=== PATIENT | female | born 1975 | race Caucasian/White ===

== ENCOUNTER → 2019-01-16 10:22 | Outpatient (CLI) | payer MEDICARE ==
[2016-12-04 21:45] VITALS: BMI 21.2
[~2019-01-16 10:22] MED LIST: BAYER CHEWABLE81 MG PO; CALCIUM 600+D T1 TA1 PO; CARDIZEM CD240 MG PO; CARDIZEM120 MG PO; FLAGYL500 MG PO; GLUCOPHAGE500 MG PO; ISOSORBIDE MONO30 M1 PO; NITROSTAT0.4 MG SL; NOVOLIN 70/30 110 ML SC; NOVOLOG100 UNIT/1 SC; PLAVIX75 MG PO; PRAVACHOL40 MG PO; PRINIVIL20 MG PO; TOPROL XL25 MG PO; VITAMIN C500 M1 PO; VITAMIN D250000 UNIT PO; ZITHROMAX250 MG PO; ZOCOR20 MG PO
== END | disposition home or self-care (01) ==
LOC: D.CT 10:22
PROVIDERS: ATTEND Internal Medicine Cardiovascular Disease
DX: I73.9 Peripheral vascular disease, unspecified (principal)

== ENCOUNTER 2019-01-27 11:27 | Outpatient (CLI) | payer MEDICARE ==
[~2019-01-27] VITALS: Ht 149.9 cm; Wt 47.7 kg
--- NOTE | ~2019-01-27 | HEMODYNAMI ---
PATIENT:ELISA HOOKS MEDICAL RECORD: [id number] : 77 LOCATION:DROBIN ADMISSION DATE: 01/27/19 Generatedon:01/27/201914:46 Patient name: ELISA HOOKS Patient #: [id number] SSN: : 1975 Date of study: 01/27/2019 Page: Of Hemodynamic Procedure Report Patient Data Patient Demographics Procedure consent was obtained First Name: ELISA Gender: Female Last Name: NEVA : 1975 [facility] Initial: DUSTY Age: 43 year(s) Patient #: [id number] Race: Additional ID: [id number] Contact details [address]: [address] [place] [address] State: [place] City: [place] Zip code: [address] Past Medical History Allergies Allergen Reaction Date Comments Reported Other allergy 01/27/2019 ATIVAN, GEMFIBROZIL, LABETALOL, Admission Admission Data Admission Date: 01/27/2019 Admission Time: 11:27 Height (in.): 59 BSA: 1.41 (m2) Height (cm.): 149.86 BMI: 21.37 (kg/m2) Weight (lbs.): 105.82 Weight (kg.): 48 Lab Results Lab Result Date: 01/27/2019 Lab Result Time: 0:00 Biochemistry Name Units Result Min Max BUN mg/dl 10 --(-*--)-- 7 18 Creatinine mg/dl 0.8 --(-*--)-- 0.6 1.3 eGFR ml/min 82.53197 -*(----)-- 90 120 NONAFRICAN CBC Name Units Result Min Max Hematocrit % 43.3 --(*---)-- 42 54 Hemoglobin g/dl 15.3 --(-*--)-- 13.5 17.5 Procedure Procedure Types Cath Procedure Diagnostic Procedure Sedation Charges Moderate Sedation up to 15 minutes Peripheral Cath Diagnostic Procedure Print Shop Chief Clerk Peripheral Procedures AFRO (Diagnostic) Procedure Description Procedure Date Procedure Date: 01/27/2019 Procedure Start Time: 14:16 Procedure End Time: 14:43 Procedure Staff Name Function Stuart Martin MD Performing Physician Bebe Laurent RT Scrub Andrew Roberts RN Nurse Citlalli Bautista RT Monitor Procedure Data Cath Procedure Fluoroscopy Diagnostic fluoroscopy Total fluoroscopy Time: 4.5 time: 4.5 min min Diagnostic fluoroscopy Total fluoroscopy dose: 95 dose: 95 mGy mGy Contrast Material Contrast Material Type Amount (ml) Isovue 300 66 Entry Location Entry Primary Successful Side Size Upsize Upsize Entry Closure Succes sful Closure Location (Fr) 1 (Fr) 2 (Fr) Remarks Device Remarks Femoral Left 5 Fr Exoseal artery Estimated blood loss: 10 ml Diagnostic catheters Device Type Used For End Catheter Placement DIAGNOSTIC 3DRC 5Fr Procedure catheter ([id number]) DIAGNOSTIC UF 5Fr Abdominal catheter ([id number]) aortogram with runoff Procedure Complications No complications Procedure Medications Medication Administration Route Dosage 0.9% NaCl I.V. 100 ml/hr Oxygen etCO2 Nasal cannula 2 l/min Heparin Flush Bag added to field 2 bags (1000units/500ml NS) Lidocaine 2% added to field 20 Versed I.V. 2 mg Fentanyl I.V. 100 mcg Versed I.V. 1 mg Versed I.V. 1 mg Hemodynamics Rest BSA: 1.41 (m2) HGB: 15.3 (g/dl) O2 Consumption: Estimated: 141.31 (ml/min) O2 Co nsumption indexed: Estimated:100.22 (ml/min/m) Heart Rate: 68 (bpm) Snapshots Pre Cath Intra NCS Post Cath Vital Signs Time Heart Resp SPO2 etCO2 NIBP (mmHg) Rhythm Pain Sedation Rate (ipm) (%) (mmHg) Status Level (bpm) 14:01:25 69 18 93 21.4 133/72(108) NSR 0 (11) 10(A) , No pain 14:05:41 65 17 90 25.1 121/68(97) NSR 0 (11) 10(A) , No pain 14:09:53 62 22 90 19.9 106/64(77) NSR 0 (11) 10(A) , No pain 14:14:01 61 21 90 19.9 107/58(79) NSR 0 (11) 10(A) , No pain 14:18:09 64 39 90 26.6 115/65(96) NSR 0 (11) 10(A) , No pain 14:22:21 62 20 91 19.9 106/60(81) NSR 0 (11) 10(A) , No pain 14:26:27 62 21 92 25.1 107/67(85) NSR 0 (11) 10(A) , No pain 14:30:34 66 20 91 23.7 125/66(106) NSR 0 (11) 9(A) , No pain 14:34:46 67 24 91 25.1 132/69(85) NSR 0 (11) 9(A) , No pain 14:39:02 69 27 92 23.7 123/64(83) NSR 0 (11) 10(A) , No pain 14:43:14 65 19 93 23.7 130/69(102) NSR 0 (11) 10(A) , No pain Medications Time Medication Route Dose Verified Delivered Reason Notes Eff ectiveness by by 14:01:42 0.9% NaCl I.V. 100 Andrew Andrew Per ml/hr Armando Roberts physician RN RN 14:01:52 Oxygen etCO2 2 Andrew Andrew for low 02 Nasal l/min Lorigan Lorigan sats cannula RN RN 14:02:04 Heparin Flush added 2 Andrew Andrew used for Bag to bags Lorigan Armando procedure (1000units/500ml field RN RN NS) 14:02:17 Lidocaine 2% added 20ml Andrew Andrew for local to vial Lorigan Lorigan anesthetic field RN RN 14:12:11 Versed I.V. 2 mg Andrew Andrew for Lorigan Lorigan sedation RN RN 14:12:42 Fentanyl I.V. 100 Andrew Andrew for mcg Lorigan Lorigan sedation RN RN 14:17:41 Versed I.V. 1 mg Andrew Andrew for Lorigan Lorigan sedation RN RN 14:22:23 Versed I.V. 1 mg Andrew Andrew for Lorigan Lorigan sedation RN news reel cameraman Log Time Note 13:35:04 Informed consent obtained and on chart 13:35:40 Procedure Status Elective Heart Cath (OP). 13:35:42 Time tracking: Regular hours (M-F 7:00 - 5:00) 13:38:28 H&P Date Dictated: 01/23/2019 Within 30 days and on chart., H&P Addendum completed by physician on day of procedure. (MUST COMPLETE FOR ALL OUTPATIENTS). 13:39:50 Patient allergic to Other allergyATIVAN, GEMFIBROZIL, LABETALOL, 13:40:21 Lab Result : BUN 10 mg/dl 13:40:21 Lab Result : Creatinine 0.8 mg/dl 13:40:21 Lab Result : eGFR NONAFRICAN 82.63510 ml/min 13:40:21 Lab Result : Hemoglobin 15.3 g/dl 13:40:21 Lab Result : Hematocrit 43.3 % 13:44:29 Patient Weight : 105.82 lbs 13:44:33 Patient Height : 59 inches 13:46:27 Andrew Roberts RN sent for patient. Start room use. 13:51:17 Patient received from Pre/Post Procedure Room to CCL 1 Alert and oriented. Tansferred to table in Supine position. 13:51:19 Warm blankets applied, and hugo hugger turned on for patient comfort. 13:51:19 Correct patient and procedure confirmed by team. 13:51:20 ECG and BP/O2 sat monitors applied to patient. 14:00:19 Vital chart was started 14:00:20 Baseline sample Acquired. 14:00:23 Rhythm: sinus rhythm 14:00:25 Full Disclosure recording started 14:00:26 Pre-procedure instructions explained to patient. 14:00:26 Pre-op teaching completed and patient verbalized understanding. 14:00:28 Family in patients room. 14:00:29 Patient NPO since Midnight. 14:00:31 Is the patient allergic to Iodine/contrast media? No. 14:00:41 Is patient on blood thinner?Yes 14:00:44 ACC The patient was administered the following blood thiners within the last 24 hours: ACCPlavix 14:00:46 Patient diabetic? Yes. 14:00:47 If diabetic: On Metformin? Yes 14:00:51 If on Metformin: Last Dose? 01/26/2019 14:00:53 Patient not . Patient has had hysterectomy. 14:00:56 Previous problem with sedation/anesthesia? No ? 14:00:59 Snore? Yes 14:01:00 Sleep apnea? No 14:01:01 Deviated septum? No 14:01:02 Opens mouth fully? Yes 14:01:03 Sticks out tongue? Yes 14:01:07 Airway obstruction? Yes COPD 14:01:09 Dentures? No ? 14:01:14 Pre procedure: right dorsailis pedis pulse Doppler 14:01:17 Pre procedure: left dorsailis pedis pulse Doppler 14:01:20 Patient pain scale 0/10 ?. 14:01:25 IV patent on arrival in right forearm with 0.9% NaCl at [facility]. 14:01:27 Lab results completed and on chart. 14:01:32 Bilateral groins area was prepped with chlora-prep and draped in sterile fashion 14:01:33 Alarms reviewed by R. N. 14:01:33 Sharps counted by scrub and verified by R.N. 14:01:41 Use device set CATH PACK 14:01:42 0.9% NaCl 100 ml/hr I.V. was administered by Andrew Roberts RN; Per physician; Verbal order read back and verified. 14:01:42 ACIST Syringe (07892) opened to sterile field. 14:01:43 ACIST Hand Control (68092) opened to sterile field. 14:01:43 ACIST Manifold (96939) opened to sterile field. 14:01:43 Medline Cath Pack ([id number]) opened to sterile field. 14:01:44 Bag Decanter (2002S) opened to sterile field. 14:01:44 EMERALD Guide Wire (808-989) opened to sterile field. 14:01:51 SHEATH 5FR Adrian ([id number]) opened to sterile field. 14:01:52 Oxygen 2 l/min etCO2 Nasal cannula was administered by Andrew Roberts RN; for low 02 sats; Verbal order read back and verified. 14:02:04 Heparin Flush Bag (1000units/500ml NS) 2 bags added to field was administered by Andrew Roberts RN; used for procedure; Verbal order read back and verified. 14:02:17 Lidocaine 2% 20ml vial added to field was administered by Andrew Roberts RN; for local anesthetic; Verbal order read back and verified. 14:09:35 --------ALL STOP TIME OUT------ 14:09:35 Final Timeout: patient, procedure, and site verified with staff and physician. All members of the team are in agreement. 14:09:48 Bilateral groins site verified by team. 14:09:51 Fire Safety Assessment: A--An alcohol-based skin anteseptic being used preoperatively., C--Open oxygen or nitrous oxide is being used., D--An ESU, laser, or fiber-optic light is being used. 14:09:53 Physical assessment completed. ASA score P 2 - A patient with mild systemic disease as per Stuart Martin MD. 14:09:57 2) 60-89 Mildly reduced kidney function, and other findings (as for stage 1) point to kidney disease. 14:10:00 Maximum allowable contrast dose (3.7 X eGFR X 0.75)230 ml. 14:10:03 Sedation plan: IV Moderate Sedation Medication:Versed, Fentanyl 14:11:45 Zero performed for pressure channel P1 14:12:11 Versed 2 mg I.V. was administered by Andrew Roberts RN; for sedation; Verbal order read back and verified. 14:12:42 Fentanyl 100 mcg I.V. was administered by Andrew Roberts RN; for sedation; Verbal order read back and verified. 14:15:33 Procedure started. 14:16:12 Local anesthetic to left femerol artery with Lidocaine 2% by Stuart Martin MD.INITIAL ACCESS ONLY 14:17:34 MICROPUNCTURE 4FR Cook ([id number]) opened to sterile field. 14:17:41 Versed 1 mg I.V. was administered by Andrew Roberts RN; for sedation; Verbal order read back and verified. 14:22:23 Versed 1 mg I.V. was administered by Andrew Roberts RN; for sedation; Verbal order read back and verified. 14:26:14 Access obtained with 4Fr micropunture. 14:27:00 A 5 Fr sheath was inserted into the Left Femoral artery 14:28:26 A DIAGNOSTIC 3DRC 5Fr catheter ([id number]) was advanced over the wire and used for Procedure. 14:30:32 WHOLEY 300cm 0.035 wire ([id number]) opened to sterile field. 14:31:19 3DRC USED TO CROSS LESION WITH WHOLEY WIRE 14:31:31 Catheter exchanged over wire. 14:31:44 A DIAGNOSTIC UF 5Fr catheter ([id number]) was advanced over the wire and used for Abdominal aortogram with runoff. 14:33:36 Abdominal angiogram w/ runoff was performed. 14:34:42 Left leg runoff performed. 14:34:44 Right leg runoff performed. 14:38:29 Sheath removed intact; hemostasis achieved with Exoseal to the Left Femoral artery. 14:39:01 EXOSEAL 5Fr (EX500) opened to sterile field. 14:39:38 Procedure ended.(Physican Out) 14:39:56 Fluoroscopy time 04.50 minutes. 14:40:04 Fluoroscopy dose: 95 mGy 14:40:04 Flurop Dose total: 95 14:40:21 Dose Area Product 9178 mGy/cm. 14:40:27 Contrast amount:Isovue 300 66ml. 14:40:35 Maximum allowable dose exceeded? No. 14:40:36 Sharps counted by scrub and verified by R.N. 14:40:39 Insertion/operative site no bleeding no hematoma. 14:40:45 Post right femoral artery:stable 14:40:49 Post Procedure Pulses reassessed and unchanged 14:40:55 Post-procedure physical assessment completed. ASA score P 3 - A patient with severe systemic disease as per Stuart Martin MD. 14:41:04 Estimated blood loss: 10 ml 14:41:05 Post procedure instruction explained to patient.Patient verbalizes understanding. 14:41:37 Procedure type changed to Cath procedure, Diagnostic procedure, Sedation Charges, Moderate Sedation up to 15 minutes, Peripheral Cath Diagnostic Procedure, Print Shop Chief Clerk Peripheral Procedures, AFRO (Diagnostic) 14:41:38 Procedure and supply charges have been captured, reviewed, submitted and are correct. 14:42:31 Procedure Complication : No complications 14:42:37 Vital chart was stopped 14:42:48 AFRO Findings: PVD: surgery consult 14:42:56 Operative report dictated upon procedure completion. 14:43:01 See physician's report for complete and final results. 14:43:10 Report given to Pre/Post Procedure Room. 14:43:14 Patient transfered to Pre/Post Procedure Room with Stretcher. 14:43:17 Procedure ended. 14:43:17 Full Disclosure recording stopped 14:43:20 End room use (Document Last) Device Usage Item Name Manufacture Quantity Catalog Hospital Part Current Minimal Lot# / Number Charge Number Stock Stock Serial# Code ACIST Syringe Acist 1 10275 290659 791180 [id number] 20 (31260) Medical Systems Inc ACIST Hand Acist 1 62903 773484 366377 669943 5 Control Medical (43709) Systems Inc ACIST Acist 1 16106 411874 931168 572781 5 Manifold Medical (56291) Systems Inc Medline Cath Medline 1 [id number] 826063 19801 053065 5 Pack ([id number]) Bag Decanter Microtek 1 2001S 048826 78773 980754 5 (2001S) Medical Inc. EMERALD Guide Cardinal 1 502-455 283615 647380 352828 5 Wire Health (502-455) SHEATH 5FR Terumo 1 [id number] 928759 372115 399840 5 Adrian (PPQ670) MICROPUNCTURE Cook Medical 1 [id number] 359801 583971 441301 5 4FR Cook ([id number]) DIAGNOSTIC Cardinal 1 [id number] 089457 636988 967854 9 3DRC 5Fr Health catheter (184010R) WHOLEY 300cm Medtronic 1 [id number] 295696 885182 014654 3 0.035 wire ([id number]) DIAGNOSTIC UF Cardinal 1 [id number] 265079 191040 548732 10 5Fr catheter Health (611448F5) EXOSEAL 5Fr Cardinal 1 EX500 259887 212686 186971 10 (EX500) Health Signature Audit Westley Stage Time Signature Unsigned Intra-Procedure 01/27/2019 Citlalli Bautista 2:44:20 PM RT(R) Intra-Procedure 01/27/2019 Andrew 2:44:55 PM Armando RN Intra-Procedure 01/27/2019 Stuart Martin MD 2:46:11 PM [place] [id number]
[~2019-01-27 11:27] MED LIST changes: -GLUCOPHAGE500 MG PO; -ISOSORBIDE MONO30 M1 PO; -NITROSTAT0.4 MG SL; -NOVOLIN 70/30 110 ML SC; -NOVOLOG100 UNIT/1 SC; -TOPROL XL25 MG PO; -VITAMIN C500 M1 PO; -ZOCOR20 MG PO
[2019-01-27] MEDS ORDERED: ZOCOR20 MG PO (12:23)
[2019-01-27] MEDS ORDERED: TOPROL XL25 MG PO (12:24)
[2019-01-27] MEDS ORDERED: ISOSORBIDE MONO30 M1 PO (12:24)
[2019-01-27] MEDS ORDERED: GLUCOPHAGE500 MG PO (12:25)
[2019-01-27] MEDS ORDERED: NOVOLOG100 UNIT/1 SC (12:25)
[2019-01-27] MEDS ORDERED: NITROSTAT0.4 MG SL (12:25)
[2019-01-27] MEDS ORDERED: VITAMIN C500 M1 PO (12:27)
[2019-01-27] MEDS ORDERED: NOVOLIN 70/30 110 ML SC (12:27)
[2019-01-27] MEDS ORDERED: PLAVIX75 MG PO (12:27)
[2019-01-27] MEDS ORDERED: CARDIZEM120 MG PO (12:28)
[2019-01-27 12:29] VITALS: BP 121/61; Ht 149.9 cm; Wt 47.7 kg
[2019-01-27 12:35] LABS: CALC OSMOLALITY 280 mosm/kg (275-300); CARBON DIOXIDE 21.8 mmol/L (21.0-32.0); CHLORIDE - SERUM 101 mmol/L (98-107); CREATININE - SERUM 0.8 mg/dL (0.6-1.3); POTASSIUM - SERUM 3.7 mmol/L (3.5-5.1); SODIUM 135 mmol/L (136-145); UREA NITROGEN 10 mg/dL (7-18); eGFR NON AFRICAN AMERICAN 83 mL/min (90-120)
[2019-01-27 12:36] LABS: GLUCOSE 308 mg/dL (74-106)
[2019-01-27 12:46] LABS: BASOPHILS 0.3 % (0-2); EOSINOPHILS 0.1 % (0-7); HEMATOCRIT 43.3 % (36.0-48.0); HEMOGLOBIN 15.3 g/dL (12-16); IMMATURE GRANULOCYTES 0.2 % (0-5); LYMPHOCYTES 32.7 % (15-50); MCH 33.6 pg (26.0-34.0); MCHC 35.3 g/dL (31.0-37.0); MCV 95.2 fL (80.0-100.0); MEAN PLATELET VOLUME 11.5 fL (7.4-10.4); NEUTROPHILS 62.7 % (40-80); PLATELET COUNT 195 10x3/uL (130-400); RBC 4.55 10x6/uL (4.00-5.40); RDW 13.4 % (11.5-14.5); WBC 10.3 10x3/uL (4.8-10.8)
--- NOTE | 2019-01-27 14:55 | NUR ---
PT ARRIVED BY STRETCHER. PLACED ON MONITORS. ASSESSMENT COMPLETED. VSS. FAMILY AT BEDSIDE. DR. ENG ROUNDED AND SPOKE WITH PT AND PT'S FAMILY. THEY VOICED UNDERSTANDING. CALL LIGHT WITHIN REACH.
--- NOTE | 2019-01-27 15:10 | NUR ---
PT RESTING COMFORTABLY. VSS. LEFT GROIN DRESSING C/D/I. NO S/S OF HEMATOMA NOTED. FAMILY AT BEDSIDE. CALL LIGHT WITHIN REACH.
--- NOTE | 2019-01-27 15:40 | NUR ---
LEFT GROIN DRESSING C/D/I. NO S/S OF HEMATOMA NOTED. CALL LIGHT WITHIN REACH. FAMILY AT BEDSIDE. VSS AT THIS TIME. RESTING COMFORTABLY.
--- NOTE | 2019-01-27 16:05 | NUR ---
RIGHT GROIN DRESSING C/D/I. NO S/S OF HEMATOMA NOTED. CALL LIGHT WITHIN REACH. HEAD OF BED INC TO 30 DEGREES. TOLERATED WELL. SET UP WITH SANDWICH TRAY AND DRINK. FAMILY AT BEDSIDE TO ASSIST.
--- NOTE | 2019-01-27 16:35 | NUR ---
PT SITTING UP EATING A SANDWICH. DENIES NAUSEA. VSS. LEFT GROIN DRESSING C/D/I. NO S/S OF HEMATOMA NOTED. CALL LIGHT WITHIN REACH. FAMILY AT BEDSIDE.
--- NOTE | 2019-01-27 17:08 | NUR ---
LEFT GROIN DRESSING C/D/I. NO S/S OF HEMATOMA NOTED. PIV D/C'D WITH CATH TIP INTACT. TOLERATED WELL. DISCUSSED DISCHARGE INSTRUCTIONS WITH PT AND PT'S FAMILY. THEY VOICED UNDERSTANDING. DR. WELCH'S NURSE WILL CALL PT REGARDING AN APPT. SPOKE WITH MONI HOFFMANN RN.
--- NOTE | 2019-01-27 17:10 | NUR ---
PT AMBULATED TO RESTROOM AND VOIDED WITHOUT DIFFICULTY.
--- NOTE | 2019-01-27 17:20 | NUR ---
LEFT GROIN DRESSING C/D/I. NO S/S OF HEMATOMA NOTED. PT TAKEN OUT TO VEHICLE BY WHEELCHAIR. NO S/S OF DISTRESS NOTED. ALL BELONGINGS AND PAPERWORK IN HAND.
== END 2019-01-27 17:20 | disposition home or self-care (01) ==
LOC: D.CATH 11:27
PROVIDERS: ATTEND Internal Medicine Cardiovascular Disease
DX: I70.213 Atherosclerosis of native arteries of extremities with intermittent claudication, bilateral legs (principal)

== ENCOUNTER → 2019-02-04 14:33 | Outpatient (CLI) | payer MEDICARE ==
[2019-01-27 12:29] VITALS: BMI 21.2
[~2019-02-04 14:33] MED LIST changes: +GLUCOPHAGE500 MG PO; +ISOSORBIDE MONO30 M1 PO; +NITROSTAT0.4 MG SL; +NOVOLIN 70/30 110 ML SC; +NOVOLOG100 UNIT/1 SC; +TOPROL XL25 MG PO; +VITAMIN C500 M1 PO; +ZOCOR20 MG PO
== END | disposition home or self-care (01) ==
LOC: D.US 14:33
PROVIDERS: ATTEND Internal Medicine Cardiovascular Disease
DX: I65.23 Occlusion and stenosis of bilateral carotid arteries (principal)

== ENCOUNTER 2019-02-19 05:00 | Day surgery (SDC) | payer MEDICARE ==
[2019-02-17 12:36] LABS: BASOPHILS 0.3 % (0-2); EOSINOPHILS 0 % (0-7); HEMATOCRIT 45.5 % (36.0-48.0); HEMOGLOBIN 15.8 g/dL (12-16); IMMATURE GRANULOCYTES 0.2 % (0-5); LYMPHOCYTES 30.5 % (15-50); MCH 33.3 pg (26.0-34.0); MCHC 34.7 g/dL (31.0-37.0); MCV 95.8 fL (80.0-100.0); MEAN PLATELET VOLUME 11.4 fL (7.4-10.4); MONOCYTES 3.5 % (2-11); NEUTROPHILS 65.5 % (40-80); PLATELET COUNT 196 10x3/uL (130-400); RBC 4.75 10x6/uL (4.00-5.40); RDW 13.4 % (11.5-14.5); WBC 11.2 10x3/uL (4.8-10.8)
[2019-02-17 12:54] LABS: APTT 29.3 SECONDS (22.8-39.4); INR 0.92 (0.85-1.17); PROTIME 11.8 SECONDS (11.6-15.0)
[2019-02-17 13:12] LABS: ALBUMIN 3.6 g/dL (3.4-5.0); ANION GAP 16.9 mmol/L (8-16); BILIRUBIN - TOTAL 0.2 mg/dL (0.2-1.3); CALCIUM 9.4 mg/dL (8.5-10.1); CREATININE - SERUM 0.9 mg/dL (0.6-1.3); POTASSIUM - SERUM 3.9 mmol/L (3.5-5.1); PROTEIN - SERUM 7.1 g/dL (6.4-8.2)
[2019-02-17 13:13] LABS: APPEARANCE CLEAR (CLEAR); COLOR YELLOW (YELLOW); GLUCOSE 1000 mg/dL (NEGATIVE); KETONE SMALL mg/dL (NEGATIVE); NITRITE NEGATIVE (NEGATIVE); PROTEIN NEGATIVE (NEGATIVE); SPECIFIC GRAVITY 1.015 (1.005-1.020); UROBILINOGEN NORMAL (NORMAL)
[2019-02-17 13:14] LABS: BILIRUBIN NEGATIVE (NEGATIVE)
[2019-02-19] VITALS (21 sets, daily range): BP systolic 121–155; BP diastolic 71–93; Ht 149.9 cm; Wt 50.1 kg
[~2019-02-19] VITALS: Ht 149.9 cm; Wt 50.1 kg
[2019-02-19] MEDS ORDERED: MELATONIN10 M1 PO (05:49)
[2019-02-19] MEDS ORDERED: TYLENOL PM1 TAB (05:50)
--- NOTE | 2019-02-19 10:20 | NUR ---
REC'D VIA BED FROM SURGERY, ALEXANDRA MASK AT 15L IN USE, VSS, DROWSEY, WAKES UP AND FOLLOWS COMMANDS, LEFT SC WITH PLASMYLITE AT 150 CC/HR, NO PRESSORS AT THIS TIME, RIGHT AND LEFT GROIN AREA WITH SOFT, NO REDNESS OR HEMATOMA, DRESSING CDI, PT MOVING ALL EXTREMETIES, POSITIVE DOPPLERED PEDAL PULSES B/L, ACCLAMATED TO CVICU, LCALL LIGHT IN REACH, ASSESSMENT COMPLETED PER FLOWSHEET, 1030 CXR COMPLETED 1040 MOTHER TO BEDSIDE, DR WELCH UPDATED STATUS 1050 O2 CHANGED TO NC AT 4L, SCD'S PLACED
--- NOTE | 2019-02-19 12:00 | NUR ---
MOTHER AT BEDSIDE. NO NEEDS AT THIS TIME. SR ON THE MONITOR.
--- NOTE | 2019-02-19 13:42 | NUR ---
EYES CLOSED, RESP EVEN AND UNLABORED. SR ON THE MONITOR. EASILY AROUSED BY VERBAL STIMULI. DENIES ANY PAIN OR NEEDS AT THIS TIME.
--- NOTE | 2019-02-19 19:00 | NUR ---
REPORT RECEIVED AT BEDSIDE, SHIFT ASSESSMENT COMPLETE PER FLOW SHEET, PT AAOx4 DENIES PAIN AT THIS TIME, ON ICU MONITORS, SINUS TACH @111bpm ON CM, OTHER VSS, BILAT GROIN INCISION SITES SOFT TO PALPATION, DRSG'S C/D/I, NO S/S OF BLEED, ALL PULSES PALPABLE, REPOSITIONED FOR COMFORT, CALL LIGHT IN REACH, BED ALARM ON, WILL CONTINUE TO MONITOR
--- NOTE | 2019-02-19 21:00 | NUR ---
MEDS GIVEN PER MAR/ORDERS, PT ABLE TO SWALLOW WITHOUT DIFFICULTY, NO S/S OF ACUTE DISTRESS, PT AWAKE AND ALERT, LARGE CUP ICE WATER GIVEN, VSS, PT REPOSIONED TO BEDSIDE TO DANGLE WITH MINIMAL ASSIST IN MOVEMENT, PT DENIES PAIN, CALL LIGHT IN REACH, NURSE AT BEDSIDE
--- NOTE | 2019-02-19 21:30 | NUR ---
REPOSITIONED PT IN BED WITH MINIMAL ASSIST FROM RN, VSS, HOB ELEVATED, CALL LIGHT IN REACH, TCDB COMPLETED, PT DENIES NEEDS AT THIS TIME, WILL CONTINUE TO MONITOR
--- NOTE | 2019-02-19 23:00 | NUR ---
REASSESSMENT COMPLETE PER FLOW SHEET, NO ACUTE CHANGES OR DISTRESS NOTED FROM PRIOR ASSESSMENT, PT RESTING WITH EYES CLOSED, WAKES WITH MINIMAL VERBAL STEMULI AAOx4, DENIES PAIN OR NEEDS AT TYHIS TIME, VSS, NSR ON CM, REPOSITIONS SELF FREQUENTLY FOR COMFORT, BILAT GROIN SITES SOFT TO PALPATION, DRSG'S C/D/I, ALL PULSES PALPABLE, CALL LIGHT IN REACH, WILL CONTINUE TO MONITOR
[2019-02-20] VITALS (22 sets, daily range): BP systolic 119–152; BP diastolic 72–88
--- NOTE | 2019-02-20 03:00 | NUR ---
REASSESSMENT COMPLETE PER FLOW SHEET, NO ACUTE CHANGES NOTED FROM PRIOR ASSESSMENT, PT DENIES PAIN OR NEEDS, VSS , ALL PULSES PALPABLE, REPOSITIONES SELF FREQUENTLY FOR COMFORT, CALL LIGHT IN REACH, WILL CONTINUE TO MONITOR
--- NOTE | 2019-02-20 06:00 | NUR ---
PT AMBULATED TO BEDSIDE CHAIR WITH RN AT SIDE, PT NEEDED MINIMAL ASSIST TO AMBULATE, NO WEAKNESS OR DIFFICULTY IN MOVEMENT, BILAT GROIN SITES C/D/I, SOFT TO PALPATION, SINUS TACH ON CM @ 110bpm, OTHER VSS, PT DENIES PAIN OR NEEDS AT THIS TIME, WILL CONTINUE TO MONITOR
[2019-02-20 06:39] LABS: HEMATOCRIT 36.9 % (36.0-48.0); HEMOGLOBIN 12.6 g/dL (12-16); MCH 32.3 pg (26.0-34.0); MCHC 34.1 g/dL (31.0-37.0); MCV 94.6 fL (80.0-100.0); RBC 3.9 10x6/uL (4.00-5.40); RDW 13.3 % (11.5-14.5); WBC 18.8 10x3/uL (4.8-10.8)
[2019-02-20 06:49] LABS: CALC OSMOLALITY 278 mosm/kg (275-300); CALCIUM 7.6 mg/dL (8.5-10.1); CARBON DIOXIDE 22.8 mmol/L (21.0-32.0); CHLORIDE - SERUM 106 mmol/L (98-107); CREATININE - SERUM 0.7 mg/dL (0.6-1.3); POTASSIUM - SERUM 3.7 mmol/L (3.5-5.1); SODIUM 140 mmol/L (136-145); UREA NITROGEN 6 mg/dL (7-18); eGFR NON AFRICAN AMERICAN > 90 mL/min (90-120)
[2019-02-20 06:56] LABS: GLUCOSE 137 mg/dL (74-106)
--- NOTE | 2019-02-20 07:30 | NUR ---
REPORT RECEIVED. SHIFT ASSESSMENT COMPLETE. PT UP IN CHAIR. CALL LIGHT IN REACH. WAITING ON BREAKFAST AND FOR PHYSICIAN TO ROUND. READY TO GO HOME.
--- NOTE | 2019-02-20 09:26 | NUR ---
ANDREWS CATHETER REMOVED, NEWLY ORDERED MEDICATIONS GIVEN. PT UP IN CHAIR AT THIS TIME. CALL LIGHT IN REACH.
--- NOTE | 2019-02-20 10:44 | NUR ---
PT UP AND WALKED 500FT. NO DIFFICULTY. NO SOB. SAYS SHE WALKS BETTER NOW THAN BEFORE SURGERY. NO PAIN. DID NOT HAVE TO STOP.
[2019-02-20] MEDS ORDERED: COLACE100 MG PO (13:28)
--- NOTE | 2019-02-20 14:24 | NUR ---
CVL REMOVED PER PROTOCOL
--- NOTE | 2019-02-20 14:32 | NUR ---
CENTRAL LINE REMOVED. PT DRESSED.
--- NOTE | 2019-02-20 14:57 | NUR ---
DISCHARGE TEACHING PERFORMED. PT AND MOTHER UNDERSTAND PLAN FOR FOLLOW UP.
--- NOTE | 2019-03-03 14:10 | OP ---
PATIENT NAME: ELISA HOOKS MEDICAL RECORD: [id number] :77 LOCATION:D.OPS ADMISSION DATE: SURGEON: BRANNON WELCH MD DATE OF OPERATION: 02/19/2019 SURGEON: Brannon Welch MD ACCOUNT EXECUTIVE METALWORKING: Berhane Curiel MD ANESTHESIA: General endotracheal, Dr. Pham. OPERATION PERFORMED: 1. Ultrasound of right common femoral artery. 2. Ultrasound of left common femoral artery. 3. Aortogram. 4. iCAST stent 9 x 59 in the aorta. 5. iCAST stent 7 x 38, right common iliac artery. 6. iCAST stent 7 x 38, left iliac artery. 7. Left retrograde arteriogram, SWEDISH. PREOPERATIVE DIAGNOSIS: Severe claudication, life limiting, lower extremities bilaterally. 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 INDICATION FOR OPERATION: Life limiting claudication. FINDINGS OF THE OPERATION: A 50% stenosis of right renal artery, subtotal occlusion of the mid distal aorta, high-grade stenosis of right common iliac artery, mild stenosis of the left common iliac artery; however, it is impinged upon by the right common iliac artery. CONTRAST: 80 mL. FLUOROSCOPY TIME: 3 minutes 46 seconds. STENTS: 1. The aortic stent was an iCAST 9 x 59 millimeter iCAST stent. 2. Iliac stents 7 x 38, right and left. DESCRIPTION OF PROCEDURE: After informed consent, adequate preoperative medication evaluation, the patient was brought to the operating room, placed on the table in the supine position. After induction of general endotracheal anesthesia and application of appropriate monitoring devices, the abdomen, both groin and legs were prepped and draped in sterile field, utilizing Betadine scrub, alcohol, and Betadine solution. A Betadine-impregnated drape was also used. Dr. Curiel participated in the procedure by manipulating wires and placement of the left iliac stent. The patient underwent ultrasound of the right common femoral artery due to the high-grade stenosis and poor pulse. Utilizing ultrasound, we were able to access the right common femoral artery and a 4-Cambodian sheath placed exchanged for a 5-Cambodian sheath. The patient was given a calculated dose of heparin. The OPERATIVE REPORT [id number] ELISA HOOKS left groin then underwent ultrasound and the left common femoral artery was accessed under ultrasound guidance. A 4-Cambodian sheath was placed and exchanged for a 5-Cambodian sheath. The ultrasound of the groins bilaterally demonstrated normal anatomy and no abnormal findings. Utilizing a Glidewire from the left, a wire was placed across the subtotal occlusion of the aorta under fluoroscopic guidance. This was exchanged for a pigtail catheter. An aortogram was then performed that demonstrated the above findings. Exchange was made for an Amplatz wire and exchange made in the left groin for a 7 sheath. Attention was then turned toward the right groin and a wire manipulated through the iliac stenosis. Attention was then turned toward the left side again and a 9 x 59 stent graft, iCAST stent, was placed across the lesion in the aorta and inflated and aortogram demonstrated a good result. Due to the encroachment of the stenotic lesion on the right, bilateral iCAST stents were placed 7 x 38. These were inflated simultaneously, Dr. Huntley on the left and yan on the right. The balloons were removed. The patient underwent an aortogram that demonstrated excellent flow through the aorta and iliac stents. An SWEDISH picture was taken with a retrograde arteriogram from the left. It demonstrated good flow into both iliac stents. The arteries were closed bilaterally with 8-Cambodian Angio-Seal closure devices. The patient was given a calculated dose of protamine to reverse the heparin and the patient had excellent distal pulses and no bleeding with good hemostasis. The patient tolerated the procedure well, was awakened, extubated and transferred to the CV ICU in satisfactory condition. TRANSINT:[id number] Voice Confirmation ID: [id number] DOCUMENT ID: [id number] BRANNON WELCH MD at 1410 CC: [id number] DICTATION DATE: 02/19/19 1017 OCULAR CARE AIDE: 02/19/19 1225 [facility] 02/20/[address] [address]
== END 2019-02-20 14:57 | disposition home or self-care (01) ==
LOC: D.OPS 05:00 → D.SDCHOLD 05:00 → EDSTATUS 07:30 → D.SDCHOLD 07:30 → D.CVICU 10:08 → D.OPS 02-20 14:57 → D.CVICU 02-20 14:57
PROVIDERS: Thoracic Surgery (Cardiothoracic Vascular Surgery); ATTEND Internal Medicine Cardiovascular Disease
PROC: 04703DZ Dilation of Abdominal Aorta with Intraluminal Device, Percutaneous Approach (ICD-10-PCS; 2019-02-19)
PROC: 047D3DZ Dilation of Left Common Iliac Artery with Intraluminal Device, Percutaneous Approach (ICD-10-PCS; principal; 2019-02-19 07:30)
PROC: 047C3DZ Dilation of Right Common Iliac Artery with Intraluminal Device, Percutaneous Approach (ICD-10-PCS; 2019-02-19 07:30)
DX: I70.213 Atherosclerosis of native arteries of extremities with intermittent claudication, bilateral legs (principal); I70.1 Atherosclerosis of renal artery; I70.0 Atherosclerosis of aorta; F17.200 Nicotine dependence, unspecified, uncomplicated